=== PATIENT | male | born 1995 | race Hispanic/Latino ===

== ENCOUNTER 2018-06-18 16:30 | Emergency (ER) | payer SELFPAY ==
--- NOTE | 2018-06-18 16:47 | ED.PDOC ---
History of Present Illness - General Chief Complaint: ENT Problem Stated Complaint: Pt c/o sore throat, bilat ear pain Time Seen by Provider: 06/18/18 16:43 Source: patient, RN notes reviewed, Vital Signs reviewed Exam Limitations: no limitations - History of Present Illness Timing/Duration: gradual, last week Severity: moderate EENT Location: ear (R), ear (L), mouth, throat Prearrival Treatment: no prearrival treatment Improving Factors: nothing Worsening Factors: nothing Associated Symptoms: nasal congestion/drainage Home Medications: Ambulatory Orders Azithromycin Tab [Zithromax Tab] 250 mg PO QD #6 tab 06/18/18 Ketorolac Tromethamine [Toradol Tabs] 10 mg PO Q6H PRN #20 tab 06/18/18 Review of Systems - Review of Systems Constitutional: States: fever EENTM: States: no symptoms reported Respiratory: States: no symptoms reported Cardiology: States: no symptoms reported Gastrointestinal/Abdominal: States: no symptoms reported Genitourinary: States: no symptoms reported Musculoskeletal: States: no symptoms reported Skin: States: no symptoms reported Neurological: States: no symptoms reported Endocrine: States: no symptoms reported Physical Exam - Physical Exam General Appearance: Alert, Well Developed, Well Groomed, Well Hydrated, Well Nourished Eye Exam: bilateral normal Ear Exam: bilateral ear: TM red, TM bulging, erythema Nasal Exam: discharge Throat Exam: pharynx tenderness - erythema with exudates Neck: non-tender, full range of motion, supple Cardiovascular/Respiratory: regular rate, rhythm, no M/R/G, normal peripheral pulses Abdominal Exam: non-tender Neurologic: no motor/sensory deficits, alert, normal mood/affect Skin Exam: normal color, warm/dry Departure - Departure Clinical Impression: Streptococcal sore throat Otitis media Qualifiers: Otitis media type: suppurative Chronicity: acute Laterality: bilateral Recurrence: not specified as recurrent Spontaneous tympanic membrane rupture: without spontaneous rupture Qualified Code(s): H66.003 - Acute suppurative otitis media without spontaneous rupture of ear drum, bilateral Time of Disposition: 16:45 Disposition: Discharge to Home or Self Care Condition: Excellent Departure Forms: ED Discharge - Pt. Copy, Patient Portal Self Enrollment Instructions: DI for Ear Pain-Adult, Sore Throat in Adults Diet: full liquid diet Activity: increase activity as tolerated Prescriptions: Azithromycin Tab [Zithromax Tab] 250 mg PO QD #6 tab Ketorolac Tromethamine [Toradol Tabs] 10 mg PO Q6H PRN #20 tab PRN Reason: Pain Home Medications: Ambulatory Orders Azithromycin Tab [Zithromax Tab] 250 mg PO QD #6 tab 06/18/18 Ketorolac Tromethamine [Toradol Tabs] 10 mg PO Q6H PRN #20 tab 06/18/18
[2018-06-18 16:52] VITALS: O2SAT 98
[2018-06-18] MEDS: KETOROLAC TROMETHAMINE 10 MG TAB PO ONE (17:01)
[2018-06-18] MEDS: AZITHROMYCIN 250 MG TAB PO ONE (17:01)
[2018-06-18] MEDS: LIDOCAINE HCL 2% (MOUTH-THROAT) 15 ML UD MT ONE (17:02)
[2018-06-18 17:28] VITALS: BP 134/84; TEMP 100.7
== END 2018-06-18 17:20 | disposition home or self-care (01) ==
LOC: ER 16:30
DX: J02.0 Streptococcal pharyngitis (principal); H66.003 Acute suppurative otitis media without spontaneous rupture of ear drum, bilateral